=== PATIENT | male | born 1955 | race Two or more races ===

== ENCOUNTER 2017-04-18 12:18 | Outpatient (CLI) | payer OTHER | END 2017-04-18 12:54 | disposition home or self-care (01) | LOC: LAB 12:18 | DX: M19.90 Unspecified osteoarthritis, unspecified site (principal) ==

== ENCOUNTER 2017-04-18 12:26 | Outpatient (CLI) | payer OTHER | END 2017-04-18 13:02 | disposition home or self-care (01) | LOC: RAD 12:26 | DX: M19.90 Unspecified osteoarthritis, unspecified site (principal) ==

== ENCOUNTER 2018-02-01 09:24 | Emergency (ER) | payer OTHER ==
[~2018-02-01] VITALS: Ht 180.3 cm; Wt 90.7 kg
[2018-02-01] MEDS ORDERED: COZAAR50 MG (09:40)
[2018-02-01] MEDS ORDERED: SYNTHROID88 MCG (09:41)
== END 2018-02-01 12:45 | disposition home or self-care (01) ==
LOC: ER 09:24
DX: G43.809 Other migraine, not intractable, without status migrainosus (principal); R11.11 Vomiting without nausea

== ENCOUNTER 2018-04-08 14:02 | Emergency (ER) | payer OTHER ==
[~2018-04-08] VITALS: Ht 180.3 cm; Wt 88.5 kg
[~2018-04-08 14:02] MED LIST: COZAAR50 MG; SYNTHROID88 MCG
== END 2018-04-08 16:02 | disposition home or self-care (01) ==
LOC: ER 14:02
DX: S41.121A Laceration with foreign body of right upper arm, initial encounter (principal); W26.8XXA Contact with other sharp object(s), not elsewhere classified, initial encounter; Y93.89 Activity, other specified; Y92.89 Other specified places as the place of occurrence of the external cause; Y99.8 Other external cause status

== ENCOUNTER → 2018-07-30 | Outpatient (CLI) | payer OTHER | END | disposition home or self-care (01) | LOC: RAD 501 08:49 | DX: R05 Cough (principal) ==

== ENCOUNTER → 2019-04-19 | Outpatient (CLI) | payer OTHER | END | disposition home or self-care (01) | LOC: RAD 08:18 | DX: I67.1 Cerebral aneurysm, nonruptured (principal) ==

== ENCOUNTER 2021-05-15 07:08 | Outpatient (CLI) | payer OTHER | END 2021-05-15 07:25 | disposition home or self-care (01) | LOC: RAD 07:08 | PROVIDERS: ATTEND Orthopaedic Surgery | DX: M25.522 Pain in left elbow (principal) ==

== ENCOUNTER 2021-08-12 15:19 | Emergency (ER) | payer OTHER ==
[~2021-08-12] VITALS: Ht 180.3 cm; Wt 97.5 kg
[2021-08-12] MEDS ORDERED: CHILDREN'S ASPI81 MG PO (15:39)
[2021-08-12] MEDS ORDERED: TOPROL XL25 M1 PO (15:39)
[2021-08-12] MEDS ORDERED: PLAVIX75 MG PO (15:39)
[2021-08-12] MEDS ORDERED: AMOX1TAB5 PO (16:34)
== END 2021-08-12 16:43 | disposition home or self-care (01) ==
LOC: ER 15:19
DX: S61.401A Unspecified open wound of right hand, initial encounter (principal); X58.XXXA Exposure to other specified factors, initial encounter; Y93.89 Activity, other specified; Y92.9 Unspecified place or not applicable; Y99.9 Unspecified external cause status; I10 Essential (primary) hypertension

== ENCOUNTER 2024-02-16 14:29 | Outpatient (CLI) | payer OTHER ==
[~2024-02-16 14:29] MED LIST changes: +AMOX1TAB5 PO; +CHILDREN'S ASPI81 MG PO; +PLAVIX75 MG PO; +TOPROL XL25 M1 PO
== END 2024-02-16 14:39 | disposition home or self-care (01) ==
LOC: RAD 14:29
PROVIDERS: ATTEND Orthopaedic Surgery
DX: M25.561 Pain in right knee (principal); M25.562 Pain in left knee

== ENCOUNTER 2024-05-31 11:11 | Emergency (ER) | payer OTHER ==
[~2024-05-31] VITALS: Ht 180.3 cm; Wt 86.2 kg
[2024-05-31] MEDS ORDERED: ONDANSETRON HCL 2 MG/ML VIAL ONE (13:42)
[2024-05-31] MEDS ORDERED: FAMOTIDINE/PF 20 MG/2 ML VIAL ONE (13:42)
[2024-05-31] MEDS ORDERED: FAMOtidine 10 MG/ML (4ML VIAL) IV ONE (13:45)
[2024-05-31] MEDS ORDERED: 0.9 % SODIUM CHLORIDE 1,000 ML IV ONE (13:45)
[2024-05-31] MEDS ORDERED: ONDANSETRON HCL 2 MG/ML VIAL IV ONE (13:45)
[2024-05-31 14:38] LABS: HEMATOCRIT 48.8 % (39.0-48.0); HEMOGLOBIN 16.4 g/dL (13-16.00); MEAN CELL VOLUME 89.4 fL (80.0-100.00); MEAN CORPUSCULAR HGB CONC 33.5 g/dl (32.0-36.0); PLATELET COUNT 251 K/uL (150-450); RED BLOOD COUNT 5.46 M/uL (4.00-6.00); RED CELL DISTRIBUTION WIDTH 13.3 % (11.5-14.5)
[2024-05-31 15:04] LABS: ALBUMIN 4.8 gm/dL (3.4-5.0); BILIRUBIN TOTAL 0.91 mg/dL (0.3-1.2); CREATININE SERUM 1.3 mg/dL (0.70-1.30); GFR 55.23; GLOBULINA 4.7 G/DL (2.4-3.5); INR 0.99; PARTIAL THROMBOPLASTIN TIME 27.1 SECONDS (22.0-34.0); POTASSIUM 3.56 mEq/L (3.5-5.1); PROTHROMBIN TIME 10.8 SECONDS (9.0-11.5); TOTAL PROTEIN 9.5 gm/dL (6.4-8.2)
[2024-05-31] MEDS ORDERED: BUTALB/ACETAMINOPHEN/CAFFEINE 1 TAB TABLET PO ONE ×2 (15:45→15:53)
[2024-05-31 15:56] LABS: PH,URINE 5.5 (5.0-8.0); URINE APPEARANCE Clear; URINE BILIRRUBIN Small (NEGATIVE); URINE BLOOD Negative; URINE COLOR Dark Yellow; URINE GLUCOSE Negative (NEGATIVE); URINE LEUKOCYTE Trace; URINE NITRATE Negative; URINE PROTEIN 30 (NEGATIVE)
[2024-05-31 16:08] LABS: URINE CAST 5.89 uL (0.0-1.40); URINE EPITHELIAL CELLS 8.8 uL (0.0-38.8); URINE RBC 11.7 uL (0.0-20.8); URINE WBC 3.7 uL (0.0-23.2)
[2024-05-31] MEDS ORDERED: ZOFRAN8 MG PO (16:15)
[2024-05-31] MEDS ORDERED: PEPCID AC20 MG PO (16:15)
[2024-05-31 17:08] LABS: URINE KETONE 40 (NEGATIVE); URINE MUCUS HEAVY
== END 2024-05-31 18:48 | disposition home or self-care (01) ==
LOC: ER 11:14
PROVIDERS: General Practice
DX: G43.909 Migraine, unspecified, not intractable, without status migrainosus (principal); J32.0 Chronic maxillary sinusitis; I10 Essential (primary) hypertension; Z20.822 Contact with and (suspected) exposure to COVID-19; Z88.8 Allergy status to other drugs, medicaments and biological substances
CPT/HCPCS: 36415; 70450; 71045; 93005; 96365; 96366; 99284; J2405; J3490

== ENCOUNTER 2025-02-07 11:13 | Emergency (ER) | payer OTHER ==
[~2025-02-07] VITALS: Ht 180.3 cm; Wt 86.6 kg
[~2025-02-07 11:13] MED LIST changes: +PEPCID AC20 MG PO; +ZOFRAN8 MG PO
[2025-02-07] MEDS ORDERED: BAYER THERAPY325 MG PO (11:57)
[2025-02-07] MEDS ORDERED: DIOVAN160 M1 PO (11:58)
[2025-02-07] MEDS ORDERED: SYNTHROID150 MCG PO (11:59)
[2025-02-07] MEDS ORDERED: ACID REDUCER20 M1 PO (12:00)
[2025-02-07] MEDS ORDERED: DEXAMETHASONE SODIUM PHOSPHATE 4 MG/ML VIAL IM STA (12:40)
[2025-02-07] MEDS ORDERED: CEFTRIAXONE SODIUM 1,000 MG VIAL IM STA (12:40)
[2025-02-07] MEDS ORDERED: KETOROLAC TROMETHAMINE 30 MG VIAL IM STA (12:40)
[2025-02-07] MEDS ORDERED: DEXAMETHASONE SODIUM PHOSPHATE 4 MG/ML VIAL ONE (15:15)
[2025-02-07] MEDS ORDERED: KETOROLAC TROMETHAMINE 30 MG VIAL ONE (15:15)
[2025-02-07] MEDS ORDERED: CEFTRIAXONE SODIUM 1,000 MG VIAL ONE (15:15)
[2025-02-07] MEDS ORDERED: LIDOCAINE HCL 1% 10ML VIAL ONE (15:15)
[2025-02-07 16:18] LABS: BASO % 0.6 % (0.1-1.2); EOS # 0.23 (0.04-0.54); EOS % 2.6 % (0.7-7.0); LYMPH # 2.05 (1.18-3.74); LYMPH % 23.1 % (19.3-53.1); MEAN PLATELET VOLUME 11.20 fl (9.4-12.4); MONO # 0.66 (0.24-0.82); MONO % 7.4 % (4.7-12.5); NEUT # 5.83 (1.56-6.13); NEUT % 65.8 % (34.0-71.1); RED CELL DISTRIBUTION WIDTH 13.3 % (11.6-14.4)
[2025-02-07 16:44] LABS: ERYTHROCYTE SEDIMENTATION RATE 12 mm/hr (0-20)
[2025-02-07 16:56] LABS: INR 0.94
[2025-02-07 17:16] LABS: BUN CREA RATIO 18.0 (7.0-25.0); CREATININE SERUM 0.99 mg/dL (0.70-1.30); GFR 75.4; GLUCOSE FASTING 102.0 mg/dL (65-100); OSMOLALITY SERUM 283.0 MOSM/KG (275-295)
[2025-02-07] MEDS ORDERED: CEPHALEXIN500 M1 PO (19:12)
[2025-02-07] MEDS ORDERED: KETO10TA2 PO (19:12)
[2025-02-07] MEDS ORDERED: NORFLEX100MG PO (19:12)
== END 2025-02-07 19:46 | disposition home or self-care (01) ==
LOC: ER 11:13
PROVIDERS: General Practice
DX: M25.571 Pain in right ankle and joints of right foot (principal); Z88.5 Allergy status to narcotic agent
CPT/HCPCS: 36415; 73600; 96372; 99283; J0696; J1100; J1885